=== PATIENT | male | born 2000 | race Hispanic/Latino ===

== ENCOUNTER 2022-02-24 09:47 | Emergency (ER) | payer OTHER ==
[2022-02-24] MEDS ORDERED: Boostrix 0.5 ML (Tdap) VIAL ONE (10:47)
[2022-02-24] MEDS ORDERED: Amoxicillin/Potassium Clav 875 MG TAB ONE (10:47)
== END 2022-02-24 10:55 | disposition home or self-care (01) ==
LOC: CSHERS 09:47
DX: S51.851A Open bite of right forearm, initial encounter (principal); Z23 Encounter for immunization; W55.01XA Bitten by cat, initial encounter
CPT/HCPCS: 90471; 90715